=== PATIENT | male | born 1990 | race Caucasian/White ===

== ENCOUNTER 2022-03-12 22:06 | Emergency (ER) | payer OTHER, BC ==
[~2022-03-12] VITALS: Ht 188 cm; Wt 155.0 kg
[~2022-03-12 22:06] MED LIST: TYLENOL EXTRA500 MG PO
[2022-03-12] MEDS ORDERED: AMOX TR-K CLV1 EAC1 PO (23:45)
== END 2022-03-13 00:09 | disposition home or self-care (01) ==
LOC: ED 22:06
DX: S61.452A Open bite of left hand, initial encounter (principal); S61.451A Open bite of right hand, initial encounter; W54.0XXA Bitten by dog, initial encounter
CPT/HCPCS: 99283

== ENCOUNTER 2022-10-06 07:34 | Emergency (ER) | payer OTHER, BC ==
[~2022-10-06] VITALS: Ht 188 cm; Wt 154.7 kg
[~2022-10-06 07:34] MED LIST changes: +AMOX TR-K CLV1 EAC1 PO
[2022-10-06] MEDS ORDERED: ALLERGY25 M1 PO (07:52)
[2022-10-06 11:20] VITALS: BP 138/82
== END 2022-10-06 11:20 | disposition home or self-care (01) ==
LOC: ED 07:34
DX: S91.351A Open bite, right foot, initial encounter (principal); F17.200 Nicotine dependence, unspecified, uncomplicated; W54.0XXA Bitten by dog, initial encounter; Z79.899 Other long term (current) drug therapy
CPT/HCPCS: 99283

== ENCOUNTER 2024-09-13 06:36 | Inpatient (IN) | payer BC ==
[~2024-09-13] VITALS: Ht 188 cm; Wt 149.0 kg
[~2024-09-13 06:36] MED LIST changes: +ALLERGY25 M1 PO
[2024-09-13 07:19] LABS: BILIRUBIN, URINE NEGATIVE (negative); BLOOD/HGB, URINE TRACE-I (Negative); KETONE, URINE NEGATIVE (Negative); LEUK ESTERASE, URINE TRACE (negative); NITRITE, URINE NEGATIVE (negative)
[2024-09-13 07:26] LABS: HEMATOCRIT 45.2 % (35.0-50.0); HEMOGLOBIN 15.5 g/dL (12.0-18.0); MCHC 34.3 g/dl (30-36); MCV 90.5 fl (81-99); PLATELET COUNT 288 K/uL (140-440); RBC 4.99 M/ul (4.3-5.7); RDW 13.8 (10.5-15.0)
[2024-09-13] MEDS ORDERED: HYDROmorphone HCL 1 MG/ML SYR IV ONE (07:30)
[2024-09-13] MEDS ORDERED: SODIUM CHLORIDE 0.9% 1,000 ML IV PRN (07:30)
[2024-09-13] MEDS ORDERED: ondansetron HCL 4 MG/2 ML VIAL IV ONE (07:30)
[2024-09-13 07:31] LABS: BACTERIA, URINE NONE SEEN /hpf (negative); CASTS, URINE NONE SEEN \\lpf; COLLECTION TYPE, URINE CLEAN CATCH; CRYSTALS, URINE NONE SEEN (0-1+); EPITHELIAL CELLS, URINE OCCASIONAL /lpf (0-1+); REFLEX CULTURE, URINE No (No)
[2024-09-13 07:44] LABS: ALBUMIN/GLOBULIN RATIO 0.61 (1.1-2.4); ANION GAP 9.7 (7-21); BILIRUBIN, TOTAL 0.5 mg/dL (0.2-1.0); BUN/CREATININE RATIO 8.06 (6.0-28.6); CALCIUM 9.1 mg/dL (8.5-10.1); CREATININE, SERUM 1.24 mg/dL (0.70-1.30); MAGNESIUM 1.7 mg/dL (1.8-2.4); POTASSIUM 3.7 mmol/L (3.5-5.1); PROTEIN, TOTAL 7.9 g/dL (6.4-8.2)
[2024-09-13 07:45] LABS: LYMPHOCYTES, MANUAL DIFF 13; MONOCYTES, MANUAL DIFF 14; NEUTROPHILS, MANUAL DIFF 73
[2024-09-13 07:47] LABS: BASOPHILS, MANUAL DIFF 0; EOSINOPHILS, MANUAL DIFF 0
[2024-09-13] MEDS ORDERED: PIPERACILLIN/TAZOBACTAM 4.5 GM in SODIUM CHLORIDE 0.9% 100 ML IV ONE (09:30)
[2024-09-13] MEDS ORDERED: LACTATED RINGER'S 1,000 ML IV SCH (10:15)
[2024-09-13] MEDS ORDERED: MORPHINE SULFATE 4 MG/ML VIAL IV PRN (10:15)
[2024-09-13] MEDS ORDERED: ondansetron HCL 4 MG/2 ML VIAL IV PRN (10:30)
[2024-09-13] MEDS ORDERED: [UNRECOGNIZED DRUG - OTHER] IV SCH (10:30)
[2024-09-13] MEDS ORDERED: LYTES IV SCH (10:30)
[2024-09-13] MEDS ORDERED: AMINO ACIDS IV SCH (10:30)
[2024-09-13 11:51] VITALS: BP 151/88
--- NOTE | 2024-09-13 12:01 | NUR ---
BROUGHT PT TO FLOOR ON [facility]. PT ABLE TO AMBULATE TO BED ON OWN. BELONGINGS PLACED IN CUPBOARD IN BAG; PT DECLINED TO USE LOCKBOX. IV'S FLUSHED, WNL. INSCTRUCTED CALL LIGHT USE; CALL LIGHT WITHIN REACH, NO FURTHER NEEDS AT THIS TIME.
--- NOTE | 2024-09-13 12:20 | NUR ---
LR @ 125 IS INFUSING TO LEFT A/C. DR. HEARD IN TO SEE PATIENT. PHARMACY IS LOOKING INTO PPN THAT ORDERED. PATIENT IS CURRENTLY NPR.
[2024-09-13] MEDS ORDERED: LEVOFLOXACIN750 MG PO (13:11)
--- NOTE | 2024-09-13 13:23 | NUR ---
ALERT AND ORIENTED IN BED. DEMOGRAPHICS VERIFIED. LIVES IN SINGLE LEVEL HOME. HAS NO DME. DRIVES AT BASELINE. STATES HE HAS NO FINANCIAL CONCERNS TO PAY UTILITIES OR PAY FOR FOOD OR MEDICATIONS. DENIES ANY CM NEEDS AT THIS TIME.
[2024-09-13 13:28] VITALS: BP 144/85
[2024-09-13 13:35] VITALS: BP 144/85
--- NOTE | 2024-09-13 13:40 | NUR ---
UR CLINICAL REVIEW: [facility] [place]PATIENT FOR DIVERTICULITIS W/PERF [facility] FEDERAL PPO INPT 09/13/24 @ 1107 ORDER MATCHES REG MEGAN BRUNOVD FROM [facility]. REF#[id number]. CLINICALS FAXED FOR FURTHER REVIEW DISCHARGE TO HOME WHEN STABLE 09/16/24
--- NOTE | 2024-09-13 13:53 | NUR ---
PT SITTING IN BED WITH PHONE AND PILLOWS, ZOSYN HUNG AND RUNNING. ASSESSMENT, CARE PLAN, AND MEWS COMPLETED AT THIS TIME. CALL LIGHT WITHIN REACH, PT DENIES ANY FURTHER NEEDS AT THIS TIME.
[2024-09-13] MEDS ORDERED: PIPERACILLIN/TAZOBACTAM 4.5 GM in SODIUM CHLORIDE 0.9% 100 ML IV SCH (14:00)
[2024-09-13] MEDS ORDERED: metroNIDAZOLE/SODIUM CHLORIDE 500 MG/100 ML PIGGYBACK IV SCH (14:00)
--- NOTE | 2024-09-13 14:02 | NUR ---
MED REC COMPLETE
--- NOTE | 2024-09-13 15:32 | NUR ---
PT SITTING IN BED, VISITING WITH FAMILY MEMBER. CALL LIGHT WITHIN REACH, DENIES ANY NEEDS AT THIS TIME.
--- NOTE | 2024-09-13 16:00 | NUR ---
PT UNHOOKED FROM AB FOR SHOWER.
--- NOTE | 2024-09-13 16:19 | NUR ---
PT OUT OF SHOWER AND HOOKED BACK UP TO AB. AND IVF.
--- NOTE | 2024-09-13 17:03 | NUR ---
PT LAYING IN BED, WATCHING TV. IV ZOSYN FINISHED; IV SALINE LOCKED. CALL LIGHT AND PERSONAL BELONGINGS IN REACH, DENIES ANY NEEDS AT TIS TIME.
[2024-09-13 18:31] VITALS: BP 136/79
--- NOTE | 2024-09-13 19:27 | NUR ---
REPORT RECEIVED FROM DAY SHIFT RN. PT LYING IN BED ALERT AND ORIENTED. DENIES NEEDS. WHITE BOARD UPDATED. CALL LIGHT IN REACH.
--- NOTE | 2024-09-13 21:00 | NUR ---
PT REPORTS ABD PAIN "GOING UP" 08/11. PRN FOR PAIN ADMIN PER EMAR. NO FURTHER NEEDS. VISITOR AT BEDSIDE. CALL LIGHT IN REACH.
[2024-09-13 22:00] VITALS: BP 147/77
[2024-09-13 22:02] VITALS: BP 147/77
--- NOTE | 2024-09-13 23:12 | NUR ---
EVENING ASSESSMENT COMPLETE. SCHEDULED MEDS ADMIN PER EMAR. PT REPORTS ABD PAIN TOLERABLE /10. DENIES NAUSEA. ABD SOFT. BOWEL TONES ACTIVE. PT UP TO BR WITH SBA TO VOID. PT AMB MULTIPLE LAPS AROUND NURSING UNIT INDEPENDENTLY. NASREEN WELL. BACK TO BED. PT DENIES QUESTIONS OR CONCERNS. CALL LIGHT IN REACH.
[2024-09-14] VITALS (8 sets, daily range): BP systolic 130–159; BP diastolic 76–93
--- NOTE | 2024-09-14 02:48 | NUR ---
PT RESTING IN BED WITH EYES CLOSED SNORING SOFT. AWAKENS EASILY. VS AND I&O OBTAINED. NO C/O ABD PAIN OR NAUSEA. PT REMAINS NPO. PPN INFUSING PER ORDER. IV FLUSHED WITH 10 ML NS. IV SITE WNL. NO NEEDS AT THIS TIME. CALL LIGHT IN REACH.
--- NOTE | 2024-09-14 06:21 | NUR ---
PT UP TO BR WITH MINIMAL SBA TO VOID AND HAVE MEDIUM SOFT FORMED BM. BACK TO BED, NASREEN WELL. NO C/O PAIN OR NAUSEA. IV ABX INFUSING PER ORDER. NO FURTHER NEEDS.
--- NOTE | 2024-09-14 07:43 | NUR ---
PT AWAKE, ON ROOM AIR, LUNGS WITH FAINT WHEEZING R LOWER BASE, DENIES SOB WITH EXERTION. DRY COUGH PRESENT.NO C/O PAIN OR SOB. ABD LARGE SOFT, DENIES ABD PAIN AT THIS TIME. AMINOACIDS AND ABX INFUSING, 2 IV SITES RAC AND LAC PATENT. L ANKLE TRACE EDEMA. ALERT AND ORIENTED, WATCHING TV
--- NOTE | 2024-09-14 07:45 | NUR ---
HOURLY ROUNDING. NURSE WAS IN THE ROOM WHEN I WAS UPDATING THE BOARD. NO REQUEST ON PATIENT AT THIS TIME.
[2024-09-14 08:06] LABS: BASOPHILS 0.5 % (0-2); HEMATOCRIT 43.8 % (35.0-50.0); LYMPHOCYTES 16.4 % (24-44); MCH 31.2 (27-36); MCHC 34.2 g/dl (30-36); MCV 91.1 fl (81-99); MONOCYTES 10.2 % (0-12); NEUTROPHILS 70.9 % (39-80); PLATELET COUNT 282 K/uL (140-440); RBC 4.81 M/ul (4.3-5.7); RDW 13.6 (10.5-15.0)
[2024-09-14 08:22] LABS: ALBUMIN 2.9 g/dL (3.4-5.0); ALBUMIN/GLOBULIN RATIO 0.62 (1.1-2.4); ANION GAP 11.2 (7-21); BILIRUBIN, TOTAL 0.5 mg/dL (0.2-1.0); BUN/CREATININE RATIO 13.48 (6.0-28.6); CALCIUM 9.3 mg/dL (8.5-10.1); CREATININE, SERUM 0.89 mg/dL (0.70-1.30); POTASSIUM 4.2 mmol/L (3.5-5.1); PROTEIN, TOTAL 7.6 g/dL (6.4-8.2)
--- NOTE | 2024-09-14 08:27 | NUR ---
Walking hallwayse up and down several times, tolerated well
--- NOTE | 2024-09-14 10:00 | NUR ---
Spoke with Arturo. He denies any needs. He does need a pcp and family use [facility] in [place]. I will call Tiffanie to assist pt with a pcp.
--- NOTE | 2024-09-14 10:09 | NUR ---
PATIENT IS UP AMBULATING IN HALLWAY.
--- NOTE | 2024-09-14 10:45 | NUR ---
Pt has walked hallways up and down multiple times since this am. back to room, visiting with family. Pt denies c/o abd pain or n/v. On room air. IVF infusng w/o problems. Was seen by surgeon early this AM
--- NOTE | 2024-09-14 11:01 | NUR ---
VISITED DURING SPIRITUAL CARE ROUNDS. PT IN OVERALL GOOD SPIRITS, NO IMMEDIATE NEEDS. ETL DATA ARCHITECT PROVIDED SUPPORTIVE PRESENCE, HOSPITALITY, PRAYER, FACILITATED INTERACTION WITH THERAPY ANIMAL.
--- NOTE | 2024-09-14 11:38 | NUR ---
Called Tiffanie for fu appt from the hospital and to establish care. Pt scheduled with Tomas LOUISE for September 27 at 10:15.
--- NOTE | 2024-09-14 12:37 | NUR ---
Ambulating hallways, no c/o abd pain. IVF infusing w/o problems.
--- NOTE | 2024-09-14 14:24 | NUR ---
Awake, on room air, watching tv. PPN and IV abx infusing w/o problems. no c/o abd pain
--- NOTE | 2024-09-14 16:03 | NUR ---
PATIENT IN BED AT THIS TIME. BUTTERMAKER HELPER CHARTED HOURLY ROUNDS. CALL LIGHT WITHIN REACH, NO FURTHER NEEDS AT THIS TIME.
--- NOTE | 2024-09-14 16:06 | NUR ---
RESTING, EYES CLOSED, ON ROOM AIR, NO S/SX DISTRESS, REPOSITIONS SELF IN BED, IVF/ABX INFUSING W/O PROBLEMS, NO S/SX OR C/O N/V OR ABD PAIN
--- NOTE | 2024-09-14 17:05 | NUR ---
PATIENT STANDING IN ROOM AT THIS TIME. SQUEEGEE OPERATOR CHARTED VITALS AND I&O'S. CALL LIGHT WITHIN REACH, NO FURTHER NEEDS.
--- NOTE | 2024-09-14 17:22 | NUR ---
Walking hallways up and down multiple times again . tolerating well. no c/o abd pain. IVF infusing w/o problems
--- NOTE | 2024-09-14 18:16 | NUR ---
In bed, Room air, has had 2 bm's this shift, voiding QS, no c/o abd pain or n/v. continues to be NPO. on PPN and IV abx. tolerating well. Has walkem multiple times every hour, toleratiang well. Pleasant and cooperative, toleraing NPO status, does own oral care.
--- NOTE | 2024-09-14 19:14 | NUR ---
REPORT RECEIVED FROM DAYSUTFT RN. PATIENT AMBULATING AROUND HALLWAY WITH EVEN GAIT, IV INFUSIONS CONTINUING TO INFUSE. NO NEEDS IDENTIFIED.
--- NOTE | 2024-09-14 19:46 | NUR ---
PATIENT SITTING UPRIGHT IN BED, WATCHING TV. VS OBTAINED AND RECORDED, ASSESSMENT COMPLETE. INTAKE AND OUTPUT DOCUMENTED. PATIENT DENIES ANY NEEDS AT THIS TIME, REPORTS THAT PAIN IS A 2/10 AND TOLERABLE, DENIES PAIN WITH ABD PALPATION. CALL LIGHT IN REACH
--- NOTE | 2024-09-14 22:48 | NUR ---
SCHEDULED MED STARTED PER ORDER. PATIENT WATCHING TV IN BED, DENIES ANY OTHER NEEDS AT THIS TIME. CALL LIGHT IN REACH.
[2024-09-15] VITALS (10 sets, daily range): BP systolic 146–155; BP diastolic 73–99
--- NOTE | 2024-09-15 00:12 | NUR ---
PATIENT RESTING WITH EYES CLOSED, RESPIRATIONS EVEN AND UNLABORED. IV CONTINUING TO INFUSE PER ORDER. CALL LIGHT IN REACH.
--- NOTE | 2024-09-15 02:06 | NUR ---
ROUNDED ON PATIENT, PATIENT STANDING AND WALKING AROUND ROOM WITH IV POLE. STATES HE IS JUST STRETCHING HIS LEGS. PATIENT HAS EVEN AND STEADY GAIT. HE DENIES ANY NEEDS, CALL LIGHT IN REACH.
--- NOTE | 2024-09-15 02:58 | NUR ---
RN CALLED TO ROOM REGARDING PATIENT IV LEAKING. IV REDRESSED, FLUSHING AND INFUSING WELL AT THIS TIME. NO FURTHER LEAKING NOTED FOR THE IV IN THE RAC. IV IN THE LEFT AC NOTED TO HAVE SOME REDNESS FROM ADHESIVE IRRITATION. IV FLUSHES WELL WITHOUT DIFFICULTY. IV SITE REDRESSED WITHOUT DIFFICULTY. IV INFUSION CONTINUING TO INFUSE PER ORDER. NO FURTHER NEEDS AT THIS TIME. CALL LIGHT IN REACH.
--- NOTE | 2024-09-15 04:32 | NUR ---
ROUNDED ON PATIENT, PATIENT RESTING WITH EYES CLOSED. RESPIRATIONS EVEN AND UNLABORED. IV INFUSION CONTINUING TO INFUSE WITHOUT DIFFICULTY. NO NEEDS IDENTIFIED, CALL LIGHT IN REACH
--- NOTE | 2024-09-15 05:35 | NUR ---
VS OBTAINED AND RECORDED. INTAKE AND OUTPUT DOCUMENTED. BOWEL SOUNDS AUSCULTATED, ABD ASSESSMENT IS UNCHANGED. MINIMAL TENDERNESS, SOFT. PATIENT DECLINES ANY NEEDS, DECLINES PAIN. BOWEL SOUNDS ARE ACTIVE. CALL LIGHT IN REACH. IV INFUSION CONTINUING PER ORDER WITHOUT DIFFICULTY. NO NEEDS.
--- NOTE | 2024-09-15 06:12 | NUR ---
SCHEDULED MED PROVIDED TO PATIENT, INFUSING IN THE LAC. AMINO ACIDS INFUSING IN THE RIGHT AC. BOTH IV SITES INFUSING WITHOUT DIFFICULTY. PATIENT SITTING UPRIGHT IN BED, RESPIRATIONS EVEN AND UNLABORED. PATIENT DECLINES ANY NEEDS AT THIS TIME. CALL LIGHT IN REACH.
--- NOTE | 2024-09-15 07:06 | NUR ---
REPORT RECEIVED FROM SOLAR SALES REPRESENTATIVE AND ASSESSOR YULY CHRISTIAN. PATIENT IS LYING IN BED WITH HOB ELEVATED. PATIENT WITH EYES OPEN AND RESPIRATIONS ARE EVEN AND UNLABORED. PATIENT STATED NO NEEDS AT THIS TIME. CALL LIGHT AND PERSONAL BELONGINGS ARE WITHIN REACH.
--- NOTE | 2024-09-15 08:00 | NUR ---
INTO SEE PATIENT. PATIENT UP IN BED WATCHING TV. STATES HE HAS NO CM NEEDS. HAS A RIDE WHEN MEDICALLY CLEARED. NO QUESTIONS.
--- NOTE | 2024-09-15 08:04 | NUR ---
PATIENT IS LYING IN BED WITH HOB ELEVATED. PATIENT WITH EYES OPEN AND WATCHING TV. RESPIRATIONS ARE EVEN AND UNLABORED. ZOSYN RESTARTED AFTER LAB FINISHED. PATIENT STATED NO FURTHER NEEDS AT THIS TIME. CALL LIGHT AND PERSONAL BELONGINGS ARE WITHIN REACH.
[2024-09-15 08:07] LABS: BASOPHILS 0.5 % (0-2); EOSINOPHILS 2.4 % (0-6); HEMATOCRIT 44.7 % (35.0-50.0); HEMOGLOBIN 15.6 g/dL (12.0-18.0); LYMPHOCYTES 21.2 % (24-44); MCH 31.7 (27-36); MCHC 34.9 g/dl (30-36); MCV 90.8 fl (81-99); NEUTROPHILS 64.9 % (39-80); PLATELET COUNT 308 K/uL (140-440); RBC 4.93 M/ul (4.3-5.7); RDW 13.7 (10.5-15.0)
[2024-09-15 08:22] LABS: ALBUMIN 3.1 g/dL (3.4-5.0); ALBUMIN/GLOBULIN RATIO 0.61 (1.1-2.4); BILIRUBIN, TOTAL 0.6 mg/dL (0.2-1.0); BUN/CREATININE RATIO 12.84 (6.0-28.6); CALCIUM 9.5 mg/dL (8.5-10.1); CREATININE, SERUM 1.09 mg/dL (0.70-1.30); PROTEIN, TOTAL 8.2 g/dL (6.4-8.2)
--- NOTE | 2024-09-15 09:30 | NUR ---
PATIENT IS LYING IN BED WITH HOB ELEVATED. TV IS ON. FULL ASSESSMENT COMPLETE AND DOCUMENTED IN THE CHART. PATIENT IS INDEPENDENT IN THE ROOM. IV SITES BOTH FLUSHED WITH 10 ML NORMAL SALINE. IV DRESSINGS ARE CLEAN, DRY, AND INTACT. AMINO ACIDS ARE INFUSING IN THE RAC AND THE ZOSYN INFUSION IS INFUSING IN THE LAC. PATIENT WITH NO COMPLAINTS OF PAIN. SKIN INTACT. PATIENT IS NPO AT THIS TIME. BOWEL TONES ARE ACTIVE IN ALL FOUR QUADRANTS. PATIENT WITH NO COMPLAINTS OF NAUSEA OR VOMITING. LAST BM WAS 09/14/24. PATIENT IS ON ROOM AIR. LUNG SOUNDS ARE CLEAR IN THE UPPER LOBES AND DIMINISHED IN THE BASES BILATERALLY. CARDIAC WITH NORMAL S1 AND S2 ON AUSCULTATION. RADIAL AND PEDAL PULSES ARE STRONG BILATERALLY. CAPILLARY REFILL IN THE UPPER AND LOWER EXTREMITIES IS LESS THAN 3 SECONDS. SENSATION INTACT WITH NO COMPLAINTS OF NUMBNESS OR TINGLING. NO EDEMA NOTED. PATIENT IS ALERT AND ORIENTED. PATIENT STATED NO FURTHER NEEDS AT THIS TIME. CALL LIGHT AND PERSONAL BELONGINGS ARE WITHIN REACH.
--- NOTE | 2024-09-15 10:20 | NUR ---
In with pt in response to IV Pump alarming occlusion on patient side. IV in pt LAC is patent, however, it doesn't take much bend in his elbow to cause the pump to alarm. Secured the elbow in a hyperextended position using a wash cloth and coban, then used a piece of tape to apply pressure and traction to the hub of the catheter as this seemed to help when I held it in that position using my finger. The zosyn has approximately one hour left to infuse. Heat packs applied to both arms (wash cloth placed between skin and heat pack) to warm them up in the event a new IV site needs to be obtained. Call light in reach. Side rails up x4. Pt denies further needs at this time.
--- NOTE | 2024-09-15 10:37 | NUR ---
ZOSYN INFUSION RESTARTED. PATIENT IS LYING IN BED WITH HOB ELEVATED. PATIENT WITH EYES OPEN AND RESPIRATIONS ARE EVEN AND UNLABORED. PATIENT IS WATCHING TV. PATIENT STATED NO FURTHER NEEDS AT THIS TIME. CALL LIGHT AND PERSONAL BELONGINGS ARE WITHIN REACH.
--- NOTE | 2024-09-15 10:59 | NUR ---
PATIENT IS AMBULATING INDEPENDENTLY IN THE HALLWAY AT THIS TIME.
--- NOTE | 2024-09-15 11:11 | NUR ---
PATIENT IS AMBULATING INDEPENDENTLY IN THE HALLWAY AT THIS TIME.
--- NOTE | 2024-09-15 12:25 | NUR ---
PATIENT AMBULATING THE HALLWAYS INDENPENDENTLY WITH IV INFUSION INFUSING. PRIMARY NURSE, BRIGIDO, NOTIFIED PATIENT OF UPGRADE TO CLEAR LIQUIDS. PATIENT REQUESTED BROTH AND JUICE. NO SIGNS OF SOB OR DIZZINESS NOTED. CHEPE ACOSTA, BROUGHT IN CLEAR LIQUIDS TO THE PATIENT'S ROOM.
--- NOTE | 2024-09-15 12:25 | NUR ---
PATIENT IS AMBULATING THE HALLWAYS INDEPENDENTLY WITH IV FLUIDS INFUSING. PRIMARY NURSE, BRIGIDO, NOTIFIED PATIENT OF DIET CHANGE TO CLEAR LIQUIDS. PATIENT ORDERED FOOD AND DAVE BROUGHT REQUESTED FOODS TO PATIENTS ROOM.
--- NOTE | 2024-09-15 13:55 | NUR ---
PATIENT IS SITTING IN CHAIR WITH VISITOR ON THE COUCH. PATIENT DENIES FURTHER NEEDS AT THIS TIME. CALL LIGHT AND PERSONAL BELONGINGS ARE WITHIN REACH.
--- NOTE | 2024-09-15 14:38 | NUR ---
PATIENT IS AMBULATING IN THE HALLWAY INDEPENDENTLY AT THIS TIME. PATIENT IS TOLERATING WELL.
--- NOTE | 2024-09-15 15:33 | NUR ---
PATIENT IS SITTING IN CHAIR WITH IV FLUID AND MEDICATION INFUSING. PATIENT REPORTS SOME SORENESS IN HIS RIGHT ARM WITH THAT IV SITE. BOTH IVS ARE INFUSING WITH NO REPORTED PAIN OR BURNING. PATIENT REPORTS NO PAIN. PATIENT HAS ACTVE BOWEL TONES IN ALL FOUR QUADRANTS. PATIENT REPORTS NO NAUSEA AT THIS TIME. PATIENT IS TOLERATING ADVANCE TO CLEAR LIQUIDS WELL. PATIENT HAD A BOWEL MOVEMENT TODAY.
--- NOTE | 2024-09-15 16:00 | NUR ---
PATIENT IS SITTING UPRIGHT IN THE CHAIR AT THIS TIME. PATIENT IS ON THEIR PHONE WITH THE TV ON. PATIENT REPORTS NO NEEDS AT THIS TIME. AMINO ACIDS AND ZOSYN ARE INFUSING AT THIS TIME. CALL LIGHT AND PERSONAL BELONGINGS ARE WITHIN REACH.
--- NOTE | 2024-09-15 17:05 | NUR ---
PATIENT IS AMBULATING IN THE HALLWAYS INDEPENDENTLY AT THIS TIME. PATIENT IS TOLERATING WELL.
--- NOTE | 2024-09-15 18:04 | NUR ---
VITAL SIGNS AND INTAKE AND OUTPUT VALUES TAKEN AND DOCUMENTED IN THE CHART. FRESH CUP OF ICE WATER PROVIDED. ZOSYN INFUSION COMPLETE. IV SITE FLUSHED WITH 10 ML NORMAL SALINE AND IS SALINE LOCKED. IV DRESSING IS CLEAN, DRY, AND INTACT. PATIENT STATED NO FURTHER NEEDS AT THIS TIME. CALL LIGHT AND PERSONAL BELONGINGS ARE WITHIN REACH. TV IS ON.
--- NOTE | 2024-09-15 19:14 | NUR ---
REPORT RECEIVED FROM YULY FOFANA. PATIENT SITTING UPRIGHT IN CHAIR WITHOUT DIFFICULTY, IV INFUSION CONTINUING TO INFUSE WITHOUT DIFFICULTY. PATIENT DENIES ANY NEEDS AT THIS TIME, REPORTS NO PAIN. CALL LIGHT IN REACH.
--- NOTE | 2024-09-15 19:28 | NUR ---
PATIENT WALKED AROUND MED SURG. DID 80 LAPS SO FAR TODAY.
--- NOTE | 2024-09-15 20:44 | NUR ---
VS OBTAINED AND RECORDED. ASSESSMENT COMPLETED. IV INFUSION CONTINUING WITHOUT ISSUE. PATIENT DENIES ANY PAIN OR ANY NEEDS AT THIS TIME. ACTIVE BOWEL TONES AND WITHOUT TENDERNESS. PATIENT DENIES ANY NEEDS, CALL LIGHT IN REACH
--- NOTE | 2024-09-15 23:38 | NUR ---
ROUNDED ON PATIENT. IV SITE IN RAC RED, WARM AND HARD ABOVE IV SITE WHERE PPN WAS INFUSING. TELEPHARMACY CALLED FOR INSTRUCTIONS REGARDING INFILTRATION. THEY ADVISED DC IV SITE AND WARM COMPRESS OVER. THIS WAS COMPLETED, IV CATHETER DISCONTINUED, INTACT. STALIN RN ATTEMPTED IV INSERTION, UNSUCCESSFUL. THIS RN ATTEMPTED NEW IV INSERTION, UNSUCCESSFUL. SLURRY CONTROL OPERATOR HELPER CONTACTED FOR ULTRASOUND IV GUIDED START. REDNESS AT SITE OUTLINED WITH MARKER. NO FURTHER NEEDS, CALL LIGHT IN REACH.
--- NOTE | 2024-09-16 00:37 | NUR ---
AMINO ACID INFUSION RESTARTED ON NEW RFA IV WHICH WAS STARTED BY GERMAN Camacho RN. PATIENT DENIES ANY NEEDS AT THIS TIME, CALL LIGHT IN REACH
--- NOTE | 2024-09-16 01:50 | NUR ---
call light answered, pt assisted with tube management when oob. unmeasured void noted, fresh urinal provided and room tidied and board updated. brisk blood return noted to recently new iv site-placed via us from wilfred cedillo (ppn infusing). primary rn updated and aware. pt denies additional needs or concerns. call light in reach.
--- NOTE | 2024-09-16 02:04 | NUR ---
ROUNDED ON PATIENT, PATIENT RESTING WITH EYES CLOSED, RESPIRATIONS EVEN AND UNLABORED. IV MEDICATION AND IV INFUSIONS ARE INFUSING WITHOUT DIFFICULTY. NO NEEDS IDENTIFIED, CALL LIGHT IN REACH
--- NOTE | 2024-09-16 02:13 | NUR ---
IV MEDICATION COMPLETE. IV SALINE LOCKED. WARM COMPRESS OVER SITE OF INFILTRATION. NO FURTHER NEEDS, CALL LIGHT IN REACH.
--- NOTE | 2024-09-16 03:36 | NUR ---
PATIENT RESTING WITH EYES CLOSED, RESPIRATIONS ARE EVEN AND UNLABORED. IV INFUSION CONTINUING IN THE LFA. CALL LIGHT IN REACH, NO NEEDS INDENTIFIED.
[2024-09-16 05:52] VITALS: BP 150/98
[2024-09-16 06:07] VITALS: BP 150/98
--- NOTE | 2024-09-16 06:11 | NUR ---
SCHEDULED MEDICATION ADMINISTERED PER ORDER. ABD EXAM COMPLETED, BOWEL TONES ACTIVE. PATIENT DENIES TENDERNESS, ABD IS SOFT ON PALPATION. PATIENT DENIES NEEDS. RIGHT ARM REMAINS RED FROM INFILTRATION, PATIENT REPORTS SORENESS, WARM COMPRESS PLACED OVER ARM. REDNESS LOOKS TO HAVE SLIGHTLY RECEDED FROM THE ORIGINAL OUTLINE. PATIENT DENIES ANY NEEDS, CALL LIGHT IN REACH
--- NOTE | 2024-09-16 07:10 | NUR ---
REPORT RECEIVED FROM DRAMATIC READER RN GINO. PATIENT IS IN THE BATHROOM AT THIS TIME. CHEPE SCOTT IS IN THE ROOM AND CHANGING THE BED LINENS.
--- NOTE | 2024-09-16 07:45 | NUR ---
PATIENT IS SITTING IN CHAIR WITH BLE ON THE FLOOR. PATIENT HAS IV ANTIBIOTICS AND AMINO ACIDS INFUSING WITH NO SIGNS OF INFILTRATION ON LEAKING. IV SITES WERE FLUSHED WITH 10 MLS NS EACH. PATIENT IS ALERT AND ORIENTED TIMES FOUR. PATIENT HAS CLEAR LUNG SOUNDS IN THE UPPER LOBES AND IS DIMINISHED BILATERALLY IN THE BASES. PATIENT REPORTS NO SOB OR N/V. PATIENT HAS S1/S2 HEART SOUNDS WITH STRONG RADIAL AND PEDAL PULSES. CAPILLARY REFILL IS LESS THAN 3 SECONDS IN ALL FOUR EXTREMITIES. PATIENT HAS SENSATIONS INTACT AND NO NUMBNESS OR TINGLING. PATIENT HAS NO NOTED EDEMA. PATIENT REPORTS 1/10 PAIN IN RIGHT ARM. THE REDDENED AREA ON HIS ARM IS OUTLINED. PATIENT IS NOT REQUESTING ANYTHING FOR PAIN AT THIS TIME. PATIENT HAS ACTIVE BOWEL TONES THROUGHOUT. LAST BOWEL MOVEMENT WAS 09/15/2024. PATIENT IS ABLE TO AMBULATE INDEPENDENTLY. CALL LIGHT AND PERSONAL BELONGINGS ARE WITHIN REACH. PATIENT DENIES FURTHER NEEDS AT THIS TIME. PATIENT IS ON CLEAR LIQUIDS AND CONTINUES TO TOLERATE WELL.
--- NOTE | 2024-09-16 08:03 | NUR ---
PATIENT IS SITTING IN CHAIR WITH BLE ON THE FLOOR. PATIENT HAS IV ANTIBIOTICS AND AMINO ACIDS INFUSING. PATIENT HAS EVEN AND UNLABORED RESPIRATIONS. CALL LIGHT AND PERSONAL BELONGINGS ARE WITHIN REACH.
[2024-09-16 08:05] LABS: BASOPHILS 0.6 % (0-2); EOSINOPHILS 2.5 % (0-6); HEMATOCRIT 47.6 % (35.0-50.0); HEMOGLOBIN 16.4 g/dL (12.0-18.0); LYMPHOCYTES 20.2 % (24-44); MCH 31.2 (27-36); MCHC 34.4 g/dl (30-36); MCV 90.7 fl (81-99); MONOCYTES 10.1 % (0-12); NEUTROPHILS 66.6 % (39-80); PLATELET COUNT 336 K/uL (140-440); RBC 5.25 M/ul (4.3-5.7); RDW 13.6 (10.5-15.0)
--- NOTE | 2024-09-16 09:00 | NUR ---
INTO SEE PATIENT. PATIENT SITTING IN CHAIR. FAMILY TO PICKUP AT TIME OF DISCHARGE NO FUTHER CM NEEDS.
[2024-09-16 09:07] VITALS: BP 151/96
--- NOTE | 2024-09-16 09:10 | NUR ---
PT SITTING IN CHAIR. PT HAS NO NEEDS AT THIS TIME. CALL LIGHT WITHIN REACH.
--- NOTE | 2024-09-16 09:20 | NUR ---
PATIENT IS SITTING IN CHAIR WITH BILATERAL FEET ON THE FLOOR. PATIENT HAS IV MEDICATIONS INFUSING. PATIENT DENIES FURTHER NEEDS AT THIS TIME. CALL LIGHT AND PERSONAL BELONINGS ARE WITHIN REACH.
[2024-09-16 09:47] VITALS: BP 151/96
--- NOTE | 2024-09-16 10:25 | NUR ---
PATIENT IS SITTING IN CHAIR WITH BILATERAL FEET ON THE FLOOR. AMINO ACIDS NOW INFUSING THROUGH PATIENT'S LEFT IV PER PATIENT'S REQUEST. PATIENT REPORTED SORENESS IN RIGHT ARM. PATIENT DENIES FURTHER NEEDS AT THIS TIME. BOTH IVS WERE FLUSHED. CALL LIGHT AND PERSONAL BELONGINGS ARE WITHIN REACH.
--- NOTE | 2024-09-16 11:16 | NUR ---
UR CONCURRENT/CLINICAL REVIEW: [facility] [place] FOR DIVERTICULITIS W/PERF VARIANCE FOR GL FOR CONTINUED IV ANTIBIOTICS AND NEED TO ADVANCE DIET [facility] FEDERAL PPO INPT 09/13/24 @ 1107 ORDER MATCHES REG MEGAN BRUNOVD FROM [facility]. REF# [id number]. CLINICALS FAXED FOR FURTHER REVIEW DISCHARGE TO HOME WHEN STABLE, POTENTIAL DC TODAY 09/19/24
--- NOTE | 2024-09-16 11:19 | NUR ---
PATIENT IS SITTING IN CHAIR WITH BILATERAL FEET ON THE FLOOR. IV AMINO ACIDS INFUSING WITH NO SIGNS OF INFILTRATION OR LEAKING AT THIS TIME. PATIENT DENIES BURNING OR SORENESS WITH INFUSION. PATIENT CONTINUES TO REPORT SORENESS IN RIGHT ARM. CALL LIGHT AND PERSONAL BELONGINGS ARE WITHIN REACH. PATIENT DENIES FURTHER NEEDS AT THIS TIME.
[2024-09-16] MEDS ORDERED: LEVOFLOXACIN750 MG PO (11:56)
[2024-09-16] MEDS ORDERED: HYDROCODON-ACE1 EA11 PO (11:56)
--- NOTE | 2024-09-16 12:39 | NUR ---
THIS RN CALLED PHARMACY TO VERIFY INFILTRATION WITH AMINO ACIDS. SAHIL, PHARMACIST STATED TO TELL PATIENT TO JUST USE WARM COMPRESS. THIS RN EDUCATED PATIENT AT THIS TIME. BETO, STUDENT NURSE TRACED THE REDNESS ON THE PATIENT RIGHT ARM. PATIENT STATED NO FURTHER NEEDS AT THIS TIME. CALL LIGHT AND PERSONAL BELONGINGS ARE WITHIN REACH.
== END 2024-09-16 12:50 | disposition home or self-care (01) | DRG 392 ==
LOC: ED 06:36 → MS 11:22
PROVIDERS: Emergency Medicine; ADMIT Surgery; ATTEND Surgery
DX: K57.20 Diverticulitis of large intestine with perforation and abscess without bleeding (principal); Z68.41 Body mass index [BMI] 40.0-44.9, adult; E66.9 Obesity, unspecified; F17.210 Nicotine dependence, cigarettes, uncomplicated; Z90.49 Acquired absence of other specified parts of digestive tract; Z98.890 Other specified postprocedural states
CPT/HCPCS: 36415; 74177; 80053; 81001; 83605; 83690; 83735; 85025; J1171; J2270; J2405; J2543; J3490; J7030; J7121; Q9967

== ENCOUNTER 2025-02-21 19:48 | Inpatient (IN) | payer BC ==
[~2025-02-21] VITALS: Ht 188 cm; Wt 150.8 kg
[~2025-02-21 19:48] MED LIST changes: +HYDROCODON-ACE1 EA11 PO; +LEVOFLOXACIN750 MG PO
[2025-02-21 20:39] LABS: MCH 29.9 PG (25.7-32.2); MCHC 33.1 g/dL (32.3-36.5); MCV 90.3 fL (79.0-92.2); RBC 5.45 M/uL (4.63-6.08)
[2025-02-21] MEDS ORDERED: PIPERACILLIN/TAZOBACTAM 4.5 GM in SODIUM CHLORIDE 0.9% 100 ML IV ONE (20:45)
[2025-02-21] MEDS ORDERED: SODIUM CHLORIDE 0.9% 1,000 ML IV ONE (20:45)
[2025-02-21] MEDS ORDERED: MORPHINE SULFATE 4 MG/ML VIAL IV ONE (20:45)
[2025-02-21 20:50] LABS: LYMPHOCYTES, MANUAL DIFF 7; MONOCYTES, MANUAL DIFF 5; NEUTROPHILS, MANUAL DIFF 88
[2025-02-21 20:53] LABS: ALT (SGPT) 21.0 U/L (14-59); AST (SGOT) 12.0 U/L (15-37); GLOMERULAR FILTRATION RATE,EST 111.0 mL/min (>60); PROTEIN, TOTAL 8.0 g/dL (6.4-8.2); UREA NITROGEN 11.0 mg/dL (7-18)
[2025-02-21 20:59] LABS: LACTIC ACID, BLOOD 1.1 mmol/L (0.4-2.0)
[2025-02-21] MEDS ORDERED: ACETAMINOPHEN 325 MG TAB PO PRN (23:15)
[2025-02-21] MEDS ORDERED: MORPHINE SULFATE 4 MG/ML VIAL IV PRN (23:15)
[2025-02-21] MEDS ORDERED: MEROPENEM 1,000 MG in SODIUM CHLORIDE 0.9% 100 ML IV ONE (23:15)
[2025-02-21] MEDS ORDERED: FAMOTIDINE 20 MG/ 2 ML VIAL IV SCH (23:15)
[2025-02-21] MEDS ORDERED: DEXTROSE 5% - LACTATED RINGERS 1,000 ML IV SCH (23:15)
[2025-02-21] MEDS ORDERED: HYDROmorphone HCL 1 MG/ML SYR IV PRN (23:15)
[2025-02-22] VITALS (11 sets, daily range): BP systolic 131–152; BP diastolic 74–86
[2025-02-22 01:09] LABS: BLOOD/HGB, URINE SMALL (Negative); KETONE, URINE TRACE (Negative); LEUK ESTERASE, URINE NEGATIVE (negative); NITRITE, URINE NEGATIVE (negative)
[2025-02-22 01:15] LABS: BACTERIA, URINE RARE /hpf (negative); CASTS, URINE NONE SEEN \\lpf; CRYSTALS, URINE NONE SEEN (0-1+); EPITHELIAL CELLS, URINE SQUAMOUS 1+ /lpf (0-1+); REFLEX CULTURE, URINE No (No)
[2025-02-22 05:35] LABS: BASOPHILS 0.3 % (0.2-1.2); EOSINOPHILS 0.4 % (0.8-7.0); LYMPHOCYTES 8.2 % (21.8-53.1); MCH 30.2 PG (25.7-32.2); MCHC 33.0 g/dL (32.3-36.5); MCV 91.4 fL (79.0-92.2); MONOCYTES 7.4 % (5.3-12.2); NEUTROPHILS 83.1 % (34.0-67.9); RBC 4.74 M/uL (4.63-6.08)
[2025-02-22 05:45] LABS: SMEAR REVIEW BLOOD SEE COMMENTS
[2025-02-22 05:54] LABS: ALT (SGPT) 20.0 U/L (14-59); AST (SGOT) 11.0 U/L (15-37); GLOMERULAR FILTRATION RATE,EST 120.0 mL/min (>60); PROTEIN, TOTAL 6.7 g/dL (6.4-8.2); UREA NITROGEN 9.0 mg/dL (7-18)
[2025-02-22] MEDS ORDERED: MEROPENEM 1,000 MG in DEXTROSE 5% 100 ML IV SCH ×2 (06:00→14:00)
[2025-02-22] MEDS ORDERED: FAMOTIDINE 20 MG/ 2 ML VIAL IV SCH (09:55)
[2025-02-22] MEDS ORDERED: LACTATED RINGER'S 1,000 ML IV ONE ×2 (10:00→15:15)
[2025-02-22] MEDS ORDERED: HYDROmorphone HCL 1 MG/ML SYR IV PRN (10:00)
[2025-02-22] MEDS ORDERED: KETOROLAC TROMETHAMINE 30 MG/ML VIAL IV PRN (10:00)
[2025-02-22] MEDS ORDERED: LACTATED RINGER'S 1,000 ML IV SCH (10:00)
[2025-02-23] VITALS (11 sets, daily range): BP systolic 141–170; BP diastolic 72–93
[2025-02-23 05:44] LABS: BASOPHILS 0.2 % (0.2-1.2); EOSINOPHILS 1.4 % (0.8-7.0); LYMPHOCYTES 9.7 % (21.8-53.1); MCH 30.4 PG (25.7-32.2); MCHC 32.9 g/dL (32.3-36.5); MCV 92.5 fL (79.0-92.2); MONOCYTES 11.1 % (5.3-12.2); NEUTROPHILS 77.1 % (34.0-67.9); RBC 4.51 M/uL (4.63-6.08)
[2025-02-23 06:01] LABS: ALT (SGPT) 20.0 U/L (14-59); AST (SGOT) 12.0 U/L (15-37); GLOMERULAR FILTRATION RATE,EST 122.0 mL/min (>60); PROTEIN, TOTAL 6.5 g/dL (6.4-8.2); UREA NITROGEN 9.0 mg/dL (7-18)
[2025-02-23] MEDS ORDERED: SEVOFLURANE 250 ML BTL INH ONE (13:02)
[2025-02-23] MEDS ORDERED: SUCCINYLCHOLINE IN 0.9% NACL 200 MG/10 ML SYRINGE ONE (14:16)
[2025-02-23] MEDS ORDERED: LIDOCAINE HCL 2% 5 ML SDV ONE (14:16)
[2025-02-23] MEDS ORDERED: ROCURONIUM BROMIDE 50 MG/5 ML SYR ONE ×3 (14:16→18:28)
[2025-02-23] MEDS ORDERED: DEXAMETHASONE SOD PHOS 4 MG/ML VIAL ONE ×2 (14:16→16:38)
[2025-02-23] MEDS ORDERED: fentaNYL citrate 100 MCG/2 ML VIAL ONE (14:16)
[2025-02-23] MEDS ORDERED: ACETAMINOPHEN 1,000 MG/100 ML VIAL ONE (14:17)
[2025-02-23] MEDS ORDERED: SUGAMMADEX SODIUM 200 MG/2 ML ML ONE ×2 (14:59→18:48)
[2025-02-23] MEDS ORDERED: MAGNESIUM SULFATE 1 GM/2 ML VIAL ONE (14:59)
[2025-02-23] MEDS ORDERED: KETAMINE in NS 50 MG/5 ML SYR ONE (15:27)
[2025-02-23] MEDS ORDERED: Ropivacaine HCl 0.5% 30 ML VIAL ONE (16:38)
[2025-02-23] MEDS ORDERED: SODIUM CHLORIDE 0.9% 40 ML IV ONE (16:38)
[2025-02-23] MEDS ORDERED: fentaNYL citrate 50 MCG/ML SDV IV PRN (18:45)
[2025-02-23] MEDS ORDERED: IBLOOD GLUCOSE TEST STRIP 1 EA TEST VI PRN (18:45)
[2025-02-23] MEDS ORDERED: NALOXONE HCL 0.4 MG SYR IV PRN (18:45)
[2025-02-23] MEDS ORDERED: KETOROLAC TROMETHAMINE 30 MG/ML VIAL ONE (18:46)
[2025-02-23] MEDS ORDERED: ACETAMINOPHEN 500 MG TAB PO SCH (19:45)
[2025-02-23] MEDS ORDERED: IBUPROFEN 600 MG TAB PO PRN (20:45)
[2025-02-24] VITALS (10 sets, daily range): BP systolic 139–165; BP diastolic 72–92
[2025-02-24 05:29] LABS: BASOPHILS 0.2 % (0.2-1.2); EOSINOPHILS 0 % (0.8-7.0); LYMPHOCYTES 6.2 % (21.8-53.1); MCH 30.2 PG (25.7-32.2); MCHC 33.0 g/dL (32.3-36.5); MCV 91.4 fL (79.0-92.2); MONOCYTES 8.8 % (5.3-12.2); NEUTROPHILS 84.0 % (34.0-67.9); RBC 4.44 M/uL (4.63-6.08)
[2025-02-24 05:45] LABS: GLOMERULAR FILTRATION RATE,EST 121.0 mL/min (>60); UREA NITROGEN 10.0 mg/dL (7-18)
--- NOTE | 2025-02-24 18:26 | HP ---
[facility] [address], [place] [address] Signed ADMISSION DATE: 02/21/2025 REASON FOR ADMISSION: Acute diverticulitis with peridiverticular fluid collection (recurrent). HISTORY OF PRESENT ILLNESS: This 35-year-old large white man works at the [employer] and lives outside of [place] and presents to the emergency room with generalized abdominal pain. He had perforated diverticulitis with peridiverticular fluid collection previously under the care of Dr. Palumbo in September of 2024. Review of that record confirms he had a micro perforation without significant abscess. He did not undergo colonoscopy or anything after that. He did not have a surgical resection. He presented late last night and evaluated by Dr. Chacon with his complaints of lower abdominal pain, which have been going on since Thursday (today is Thursday), worsening over the past few days with minimal nausea, but no emesis. He noted his symptoms were similar to his last episodes in September. Evaluation included a CT scan of the abdomen showing findings consistent with perforated sigmoid diverticulitis with a 7.5 x 5.5 x 2.8 cm extraluminal fluid and gas collection between the small bowel loops in the sigmoid. There were multiple loops of small bowel in the mid and lower abdomen with wall thickening associated inflammation. There was small amount of free fluid in the pelvic gutters. He had an incidental finding of a 1 cm fat containing left adrenal nodule. His white count was quite markedly elevated to 31.01. His white count today with antibiotic therapy was 21.25. His lactic acid level was 1.1 (normal). The patient says since admission late last night, he is feeling much better. He has had no nausea or vomiting. His pain is markedly better as well. PAST MEDICAL HISTORY: Notable for a low midline laparotomy for an appendicitis problem while in his teenage years. He denies other underlying medical problems. MEDICATIONS: At time of admission are none; he had been treated with Levaquin and hydrocodone in September for his perforated diverticulitis under the care of Dr. Palumbo. ALLERGIES: Electronically Signed By: NILAM GUERRERO MD 02/24/25 1826 PATIENT NAME: ALOK GOLDMAN HISTORY AND PHYSICAL DATE OF : [birth year] REPORT #: [id number] PHYSICIAN: NILAM GUERRERO MD PCP: OTHER PCP REPORT IS CONFIDENTIAL AND NOT TO BE RELEASED WITHOUT AUTHORIZATION [address] [address] Signed He has no known drug allergies. SOCIAL HISTORY: He works at the [employer] in the [place].. He is currently but undergoing divorce. He has two children, ages 18 and 19. He lives in [facility]. REVIEW OF SYSTEMS: He denies any shortness of breath or chest pain. He has no dysphagia or dysuria. Denies any hematemesis or blood per rectum. His abdominal pain is much improved today. PHYSICAL EXAMINATION: GENERAL: A very large white man who does not appear to be systemically toxic. VITAL SIGNS: Temperature is 99.8, pulse 119, blood pressure 137/79. HEENT: Trachea is midline. He has a full marx. CHEST: Clear. HEART: Regular without murmur. ABDOMEN: Rather obese with a large hanging pannus. Surprisingly, he does not have much in the way of tenderness at this time. EXTREMITIES: Show no clubbing, cyanosis, or edema. LABORATORY STUDIES: Showed a presentation white count of 31.01, currently of 21.25, hematocrit was 49.2, currently 43.3, platelets now 191,000. Chem profile is essentially normal. Creatinine is 0.73, previously 0.91. Lactic acid was 1.1 at admission, not repeated. Liver enzymes are normal. Lipase is normal at 14. Urinalysis is normal except for 4-6 white cells per high-power field. IMAGING: CT scan was reviewed in detail and report reviewed as well. There is an amorphous inflammatory process in the central to right lower abdomen extensively related to perforated diverticulitis. ASSESSMENT: The patient has recurrent diverticulitis with perforation and air fluid collection of approximately 8 cm in maximum dimension with intervening small bowel loops, helping to wall off the process apparently. He has responded well to fluid resuscitation, IV antibiotics. Consideration will be made for drainage of the fluid collection, though this would not be amenable to a CT scan-guided approach in my opinion given the intervening bowel loops, amorphous nature of the fluid collection. Consideration might be made for a laparoscopic approach to Electronically Signed By: NILAM GUERRERO MD 02/24/25 9196 PATIENT NAME: ALOK GOLDMAN HISTORY AND PHYSICAL DATE OF : [birth year] REPORT #: [id number] PHYSICIAN: NILAM GUERRERO MD PCP: OTHER PCP REPORT IS CONFIDENTIAL AND NOT TO BE RELEASED WITHOUT AUTHORIZATION [address] [address] Signed allow for clearance of the fluid collection, placement of drain, and ultimately sigmoid resection. Alternatively, if this was not possible, particularly given he has had a prior operation through a low midline incision, he may have complicating adhesions and so forth. A standard classic approach of course would be sigmoid resection with end colostomy and later takedown of the colostomy. We talked about this in detail. There are other ways to mitigate that including resection with primary anastomosis and diverting proximal loop ileostomy, but at this point, given his much improved situation, I think there is room for avoidance of resection and colostomy. He is still somewhat tachycardic and may be somewhat relatively dehydrated. We will fluid bolus at this time and continue with medication, which includes meropenem. He will remain n.p.o. as he may still require intervention today. MD FIDEL Mars/AMBER /[id number] cc: Milena Rogers DO Copies: ~ Electronically Signed By: NILAM GUERRERO MD 02/24/25 1826 PATIENT NAME: ALOK GOLDMAN HISTORY AND PHYSICAL DATE OF : [birth year] REPORT #: [id number] PHYSICIAN: NILAM GUERRERO MD PCP: OTHER PCP REPORT IS CONFIDENTIAL AND NOT TO BE RELEASED WITHOUT AUTHORIZATION
[2025-02-25] VITALS (12 sets, daily range): BP systolic 158–175; BP diastolic 87–99
--- NOTE | 2025-02-25 11:43 | OR ---
[facility] [address] [place], [place] [address] Signed DATE OF OPERATION: 02/23/2025 SURGEON: Nilam Guerrero MD PREOPERATIVE DIAGNOSES: 1. Morbid obesity. 2. Distant history of complex appendectomy through a low midline incision. 3. Perforated diverticulitis with complex multiloculated intraabdominal and pelvic abscesses. POSTOPERATIVE DIAGNOSES: 1. Morbid obesity. 2. Distant history of complex appendectomy through a low midline incision. 3. Perforated diverticulitis with complex multiloculated intraabdominal and pelvic abscesses. PROCEDURES: 1. Laparoscopy with lysis of adhesions. 2. Conversion to open laparotomy with drainage of multiloculated interloop mesenteric abscesses and peridiverticular abscess. PROLONGED COMPLICATED AND DIFFICULT 3. Sigmoid colectomy with side-to-end coloproctostomy, prolonged complicated difficult. 4. Peritoneal lavage and placement of pelvic drain. ANESTHESIA: General endotracheal, Hudson Steele, [employer] and postoperative bilateral TAP block. INDICATION: This 35-year-old morbidly obese white man, lives in [place]. In September of this year, he presented to the hospital with perforated diverticulitis and a small peridiverticular abscess. He was managed conservatively by Dr. Palumbo, and did not require operative intervention. He did not have a colonoscopy at that time. He presented once again on February 21, 2025 with severe abdominal pain, having had increasing pain in the lower abdomen dominantly on the right side for the preceding 5 days. His white count was elevated to more than 31,000. Broad-spectrum antibiotic meropenem was administered. IV fluids given and to my surprise, essentially all of his abdominal pain has resolved. Close inspection of the CT scan shows a multiloculated fluid collection, absolutely not amenable to percutaneous drainage. Likely, this process is from perforated diverticulitis as it was before. He has had several days of ongoing problems and is now optimized for at least drainage of the abscess with possible Electronically Signed By: NILAM GUERRERO MD 02/25/25 1143 PATIENT NAME: ALOK GOLDMAN OPERATIVE REPORT DATE OF : [birth year] REPORT #: [id number] PHYSICIAN: NILAM GUERRERO MD PCP: OTHER PCP REPORT IS CONFIDENTIAL AND NOT TO BE RELEASED WITHOUT AUTHORIZATION [facility] [address] [place], [place] [address] Signed elective resection of the colon after bowel prep and other interventions. He is not systemically toxic at this time. He understands the risk of bleeding, infection, need for open procedure, need for bowel resection with end colostomy or perhaps anastomosis of proximal diversion and other indicated procedures. Understanding that, he wished to proceed. FINDINGS: On laparoscopy, he had a dense omental covering of the entire abdominal viscera. There were dense omental adhesions to the prior low midline incision as well. Despite great efforts, this could never be fully mobilized to allow for interrogation of the bowel loops more fully and on that basis, conversion to open laparotomy was undertaken. A previous low midline incision was used with some extension cephalad. He had a very thick abdominal wall pannus approximately 4 inches or so. Found within the lower abdomen was a dense phlegmonous mass extending to the right pelvis more so than the sigmoid proper, but was related in fact to perforated sigmoid diverticulitis. Secondary adhesions of small bowel were noted and interloop abscesses were broken down and suctioned free. A dominant abscess in the low abdomen, which had been seen on preoperative CT scan 7.2 cm in size was identified as well. Gram stain and cultures were obtained. Once the ascending segment of sigmoid was resected including the upper rectum, the remaining rectum and more proximal colon was surprisingly viable, not inflamed and was amenable to primary anastomosis by hand-sewn technique. Though a plan for possible diverting loop ileostomy proximal to the anastomosis was anticipated, it was my judgment that such an intervention would actually be more problematic given his thick abdominal wall pannus and the ileostomy that would have to transgress it. On that basis, no diversion was undertaken proximally, though I am very confident that the proximal and distal segments were quite viable, noninflamed, and had minimal of any stool burden at all. A drain was placed of course. THE OPERATIION WAS PROLONGED COMPLICATED AND DIFFICULT LASTING MORE THAN 4 HOURS IN AGGREGATE. DESCRIPTION OF PROCEDURE: The patient was brought to the operating room, given a general endotracheal anesthetic. Michael catheter was placed. Preoperative antibiotic, meropenem had been given. Sequential compression device stockings were used as well. The abdomen was prepared with chlorhexidine solution and draped sterilely. An Ioban was applied as he had several excoriated lesions in the lower abdomen and pannus. A supraumbilical fascial incision was made and using an open Traci cannula technique, pneumoperitoneum was achieved to a level of 14 mmHg of carbon dioxide gas. Intra-abdominal inspection showed no ascites or carcinomatosis, but omentum had draped over the entire abdominal contents in a very thick uniform pattern. There was Electronically Signed By: NILAM GUERRERO MD 02/25/25 1143 PATIENT NAME: ALOK GOLDMAN OPERATIVE REPORT DATE OF : [birth year] REPORT #: [id number] PHYSICIAN: NILAM GUERRERO MD PCP: OTHER PCP REPORT IS CONFIDENTIAL AND NOT TO BE RELEASED WITHOUT AUTHORIZATION [facility] [address] [place], [place] [address] Signed no purulence and certainly no fecal material apparent. With dissection from the patient's right side, 2 additional 5 mm ports were placed and using 2-hand manipulation, omental adhesions to the low midline incision were dissected free as much as possible. Unfortunately, despite this effort, the inflammatory cocoon overlying the small bowel could not be reasonably interrogated and therefore, conversion to open operation was undertaken. The trocars removed and a midline incision was made using the previous incision, extended somewhat cephalad to it, but not that far. Thick abdominal wall pannus 4 inches deep was noted. The Bookwalter retractor was used to provide better exposure. Intraabdominal palpation allowed for evaluation of the omentum which was densely adherent to the surface of the small bowel. This was bluntly it lower in the abdomen. Multiple thickened loops of small bowel were noted. The adhesions to them were broken down and inflammatory fluid and infected fluid was noted. The dominant abscess was deep in the pelvis and adjacent to the sigmoid mesentery with one wall of small bowel making up the wall of it. This was freed up off fully and Gram stain and cultures were obtained. A deep dense phlegmonous mass of the rectosigmoid extending to the right lower abdomen was noted. Irrigation was undertaken more fully and small bowel loops once freed were isolated cephalad and out of the way. Examination of the left colon showed it to be reasonably free of inflammation at the rectosigmoid and sigmoid densely inflamed, coiled, and in the typical appearance of history of perforation with chronic inflammatory change. The sigmoid colon which extended to the right lower quadrant was freed by dividing omentum to it, ultimately allowing for elevation of the omentum and packing of all small bowel out of the way. Optimal postioning of a Bookwalter retractor took a lot of time but allowed safe and clear exposure of the offending colon. The phlegmonous mass in the right lower quadrant was freed from the surrounding soft tissue, mindful he had prior appendectomy. Subsequent to that, the white line of Toldt was incised with electrocautery and dissection was undertaken to the normal descending colon onto the thickened and inflammatory sigmoid colon ultimately freeing it from the pelvic sidewall. Dense mesenteric thickening was noted with the sigmoid. This area was incised than area more thinned out and less involved with the inflammatory process. Application of tonsil clamps to the vascular pedicles was undertaken and these vascular pedicles were oversewn with interrupted 0 silk sutures dominantly. The distal descending colon was transected with a ALLIE 60 stapling device which allowed better manipulation of the sigmoid phlegmon. Further dissection was taken inferiorly progressively elevating the inflammatory process from the pelvis. Ultimately, the upper and mid rectum were freed and elevated and to my surprise and to my delight, the upper to mid rectum appeared to be free of inflammatory change. A bowel clamp was applied to this area. An additional clamp was applied proximal to this and the upper to mid rectum was transected with prostate scissors. Specimen was passed for pathology. Irrigation was undertaken and inspection of the Electronically Signed By: NILAM GUERRERO MD 02/25/25 1143 PATIENT NAME: ALOK GOLDMAN OPERATIVE REPORT DATE OF : [birth year] REPORT #: [id number] PHYSICIAN: NILAM GUERRERO MD PCP: OTHER PCP REPORT IS CONFIDENTIAL AND NOT TO BE RELEASED WITHOUT AUTHORIZATION [address] [address] Signed remaining rectum and descending colon was undertaken showing the bowel to be completely free of inflammation, pliable and as good as the bowel that had been electively to be resected. There was no bulky stool within the proximal colon or remaining rectum. On that basis, a primary anastomosis was deemed more advisable than an end colostomy. The staple line of the transected distal colon was oversewn with interrupted 3-0 silk sutures. A side-to-end (Silveira) coloproctostomy was then undertaken with a 2-layer technique of interrupted 3-0 silk suture. Upon opening the mucosa of each limb, only a thin gelatinous green mucoid material was noted. Using sponge sticks with Betadine, both proximal and distal segments were gently cleansed after isolation of the operative site with laparotomy packs. At conclusion of the anastomosis, both segments were completely tension free and quite viable. Gloves were changed on all operative members and isolating laparotomy packs removed. Irrigation was undertaken more fully. Through a left-sided stab incision, a 7 mm flat Vick drain was insinuated into the pelvis and nirmal-anastomotic area, but not in direct contact with it. 2 L of sterile saline were irrigated throughout the abdomen for complete clearance of any additional inflammatory fluid. There was no remaining pus. Small bowel loops had been freed up entirely showed no sign of compromised leakage or other problem. Attention was then turned towards closure. The midline fascia was reapproximated with running bidirectional #1 PDS suture, interspersed with interrupted #1 PDS internal retention sutures in a Smead-Hernández configuration. Subcutaneous tissue was copiously irrigated and the skin closed with clips. A drain was applied to bulb suction. The patient then underwent bilateral TAP blocks. He was extubated in the operating room planning transfer to the recovery room in good condition. Consideration had been made for possible proximal enteric diversion following the anastomosis. The anastomosis was not unlike that of an prepped anastomosis and given that welcome finding and mindful of the difficulty of a proximal diverting loop ileostomy through his very thick abdominal wall pannus, I considered it safer to avoid proximal diversion in this particular situation. MD FIDEL Mars/THANHL /[id number] Electronically Signed By: NILAM GUERRERO MD 02/25/25 1143 PATIENT NAME: ALOK GOLDMAN OPERATIVE REPORT DATE OF : [birth year] REPORT #: [id number] PHYSICIAN: NILAM GUERRERO MD PCP: OTHER PCP REPORT IS CONFIDENTIAL AND NOT TO BE RELEASED WITHOUT AUTHORIZATION [facility] [address] [facility] [place], [place] [address] Signed cc: Dr. Chacon [facility] Copies: ~ Electronically Signed By: NILAM GUERRERO MD 02/25/25 1143 PATIENT NAME: ALOK GOLDMANOLAS OPERATIVE REPORT DATE OF : [birth year] REPORT #: [id number] PHYSICIAN: NILAM GUERRERO MD PCP: OTHER PCP REPORT IS CONFIDENTIAL AND NOT TO BE RELEASED WITHOUT AUTHORIZATION
[2025-02-25] MEDS ORDERED: CIPROFLOXACIN 250 MG TAB PO SCH (21:00)
[2025-02-26] VITALS (10 sets, daily range): BP systolic 152–169; BP diastolic 87–101
[2025-02-26 05:37] LABS: BASOPHILS 0.5 % (0.2-1.2); EOSINOPHILS 3.4 % (0.8-7.0); LYMPHOCYTES 26.7 % (21.8-53.1); MCH 30.4 PG (25.7-32.2); MCHC 32.9 g/dL (32.3-36.5); MCV 92.3 fL (79.0-92.2); MONOCYTES 10.9 % (5.3-12.2); NEUTROPHILS 56.4 % (34.0-67.9); RBC 4.31 M/uL (4.63-6.08)
[2025-02-26 05:51] LABS: GLOMERULAR FILTRATION RATE,EST 124.0 mL/min (>60); UREA NITROGEN 9.0 mg/dL (7-18)
[2025-02-26] MEDS ORDERED: FAMOTIDINE 20 MG TAB PO SCH (21:00)
[2025-02-27 06:04] VITALS: BP 153/94
[2025-02-27 06:08] VITALS: BP 153/94
[2025-02-27 09:26] VITALS: BP 153/94
[2025-02-27] MEDS ORDERED: ACETAMINOPHEN500 MG PO (09:37)
[2025-02-27] MEDS ORDERED: CIPROFLOXACIN250 MG PO (09:37)
[2025-02-27] MEDS ORDERED: METRONIDAZOLE250 MG PO (09:37)
[2025-02-27] MEDS ORDERED: IBUPROFEN600 MG PO (09:37)
[2025-02-27 10:35] VITALS: BP 147/98
--- NOTE | 2025-02-28 11:16 | PATH ---
[facility] [address] [place], [place] [address] Signed SPECIMEN(S): A SIGMOID COLON, PORTION OF RECTUM SPECIMEN SOURCE: A. SIGMOID COLON, PORTION OF RECTUM CLINICAL HISTORY: Perforated sigmoid colon with portion of rectum.-Diverticulum, rupture with abscess. FINAL PATHOLOGIC DIAGNOSIS: Sigmoid colon with portion of rectum: - Diverticulitis coli with evidence of perforation and pericolonic abscess. - Acute serositis. - Two pericolonic lymph nodes with reactive histologic features. [facility] MICROSCOPIC EXAMINATION: Histologic sections of all submitted blocks are examined by light microscopy. These findings, together with the gross examination, support the pathologic diagnosis. GROSS DESCRIPTION: The specimen, labeled and designated "James, S, " and designated on the requisition "perforated sigmoid colon with portion of rectum," is received in formalin and consists of one unoriented segment of large bowel that is 15.5 cm in length and has an average internal circumference of 5.0 cm. The specimen is indurated. The serosal surface is red with adherent red membranous tissue and areas of ley-green exudate. Upon opening the mucosal surface is pink and finely granular with the usual folding pattern. Serially sectioning reveals multiple diverticula. One diverticulum communicates with pink granular filled cavity that extends into the serosal surface and measures 2.5 cm in greatest dimension. The bowel wall has an average thickness of 1.5 cm. Two possible lymph nodes are grossly identified. [employer] sections are submitted in six cassettes. Cassette Summary: (A1) resection margins, shave (A2-A3) diverticulum to cavity within mesentery (A4-A5) additional diverticula (A6) two possible lymph nodes each bisected one number arbitrarily inked PATIENT NAME: ALOK GOLDMAN PATHOLOGY DATE OF : [birth year] REPORT #: [id number] PHYSICIAN: EMELY WILLIS PCP: OTHER PCP REPORT IS CONFIDENTIAL AND NOT TO BE RELEASED WITHOUT AUTHORIZATION [facility] [address] [place], [place] [address] Signed FB (under the direct supervision of a pathologist) The Gross Description was prepared using a voice recognition system. The report was reviewed for accuracy; however, sound-alike word errors, addition and/or deletions may occur. If there is any question about this report, please contact Client Services. ADDITIONAL NOTES: Immunohistochemical and/or in situ hybridization studies if performed in this case included appropriate positive controls that reacted as expected. This test was developed and its performance characteristics determined by [facility]. It has not been cleared or approved by the U.S. Food and Drug Administration. The FDA has determined that such clearance or approval is not necessary. This test is used for clinical purposes. It should not be regarded as investigational or for research. [facility] is certified under the Clinical Laboratory Improvement Amendments of 1988 (CLIA) as qualified to perform high complexity clinical laboratory testing. PERFORMING LABORATORY: Technical component was performed by [facility], [address] [place] [id number] (CLIA# [id number]). Professional interpretation was performed by [facility] [place] [facility] - [address] [place] [address] (CLIA#: [id number]). Diagnostician: Tahir Valencia MD Pathologist Electronically Signed 02/28/2025 Copies: ~ PATIENT NAME: ALOK GOLDMAN PATHOLOGY DATE OF : [birth year] REPORT #: [id number] PHYSICIAN: EMELY PATHOLOGY PCP: OTHER PCP REPORT IS CONFIDENTIAL AND NOT TO BE RELEASED WITHOUT AUTHORIZATION
--- NOTE | 2025-03-01 11:20 | DS ---
[facility] [address], [place] [address] Signed ADMISSION DATE: 02/21/2025 DISCHARGE DATE: 02/27/2025 REASON FOR ADMISSION: Perforated diverticulitis with complex intraabdominal abscess. HISTORY OF PRESENT ILLNESS: This 35-year-old large white male with a BMI of 42.7, works at the [employer], presented to emergency room with generalized abdominal pain. He had perforated diverticulitis with peridiverticular fluid collection previously under the care of Dr. Palumbo in September of 2024. Review of records confirmed he had a micro perforation without significant abscess. He did not undergo colonoscopy. He presented late the night prior to current admission, evaluated by Dr. Chacon with complaints of lower abdominal pain, which has been going on for four days. A CT scan showed findings consistent with a perforated sigmoid diverticulitis with a 7.5 x 5.5 x 2.8 cm extraluminal fluid and gas collection between the small bowel loops and the sigmoid. He is admitted for further evaluation and care. Of note, his white count at admission was 21.5, lactic acid level 1.1 (normal), but with tachycardia and relative hypotension. PERTINENT PHYSICAL EXAMINATION: GENERAL: Showed a very large white man did not look to be systemically toxic. VITAL SIGNS: Pulse was 119 after fluid resuscitation with a blood pressure of 137 systolic, temperature 99.9. HEENT: Trachea midline. He had a full marx. CHEST: Clear. HEART: Without murmur. ABDOMEN: Obese with large hanging pannus. Mild tenderness is noted in the lower abdomen. LABORATORY STUDIES: [place] [address], down to 21,000 with antibiotics, hematocrit 49.2. Chem profile normal. Creatinine 0.73. Lactic acid 1.[address] scan in detail reviewed showed amorphous inflammatory process in the central to right lower abdomen ostensively related to perforated diverticulitis. HOSPITAL COURSE: The patient was fluid resuscitated, given broad-spectrum antibiotic meropenem. He had marked improvement clinically speaking. It was deemed optimal that drainage of the abscess could be undertaken to allow for elective sigmoid resection. Unfortunately, the amorphous fluid collection was not amenable to a percutaneous approach. On that basis, on February 23, 2025, he underwent laparoscopy. This was to provide for drainage of Electronically Signed By: NILAM GUERRERO MD 03/01/25 1120 PATIENT NAME: ALOK GOLDMAN DISCHARGE SUMMARY DATE OF : 86 REPORT #: [id number] PHYSICIAN: NILAM GUERRERO MD PCP: OTHER PCP REPORT IS CONFIDENTIAL AND NOT TO BE RELEASED WITHOUT AUTHORIZATION [facility] [address], [place] [address] Signed interloop abscess fluid. Laparoscopy consisted of lysis of adhesions of omentum from the low midline incision, but the abdomen was essentially covered with thick cocoon of omentum for which actual evaluation of small bowel loops was not forthcoming. On that basis, he was converted to an open laparotomy through his low midline incision. He had drainage of multiloculated interloop mesenteric abscesses. This was related to a peridiverticular perforation quite obviously. Sigmoid colectomy was performed after drainage of the abscesses. To my surprise, the more proximal colon (distal left colon) as well as the upper to mid rectum was completely nonedematous or inflamed and on that basis, a primary anastomosis was accomplished in a side-to-end configuration (Silveira anastomosis). A hand-sewn anastomosis with interrupted 3-0 silk sutures for both layers was undertaken. A drain was placed in the interloop abscess areas. Though it was considered, a proximal diversion was not performed given the health of the two bowel segments and confidence in the anastomotic closure itself. He was maintained on broad-spectrum antibiotics postoperatively and begun on clear liquids immediately postoperatively. His drain showed only serosanguineous fluid. No evidence of purulence. He was advanced in his diet from a clear liquid to a full diet and ultimately regular diet, which he has tolerated well. His drain showed no evidence of drainage of purulence and was removed prior to discharge. His wound is healing well. Good bowel function is noted. He was transitioned to oral antibiotics Cipro and Flagyl, and will be maintained on that for few days postop. DISCHARGE MEDICATIONS: 1. Cipro 750 mg p.o. b.i.d., #10. 2. Flagyl 250 mg p.o. t.i.d., #15. 3. Tylenol 1000 mg p.o. q.6 hours, #60. 4. Ibuprofen 600 mg p.o. q.6 p.r.n. pain. DISCHARGE DIAGNOSES: 1. Complex intraabdominal abscess secondary to perforated sigmoid diverticulitis (recurrent). 2. Status post laparoscopy with conversion to open laparotomy with drainage of intraperitoneal abscess and a sigmoid resection with primary anastomosis without proximal diversion. 3. Morbid obesity. FOLLOWUP PLAN: He is return to see me in approximately four weeks. He will lift no more than 20 pounds for the next four weeks. He is recommended to shower on a daily basis. If he has any problems, he will let me know. Electronically Signed By: NILAM GUERRERO MD 03/01/25 1120 PATIENT NAME: ALOK GOLDMAN DISCHARGE SUMMARY DATE OF : 86 REPORT #: [id number] PHYSICIAN: NILAM GUERRERO MD PCP: OTHER PCP REPORT IS CONFIDENTIAL AND NOT TO BE RELEASED WITHOUT AUTHORIZATION [address] [place], [place] [address] Signed MD FIDEL Mars/AMBER /[id number] cc: Dr. Milena Palumbo Copies: ~ Electronically Signed By: NILAM GUERRERO MD 03/01/25 1120 PATIENT NAME: ALOK GOLDMAN DISCHARGE SUMMARY DATE OF : 86 REPORT #: [id number] PHYSICIAN: NILAM GUERRERO MD PCP: OTHER PCP REPORT IS CONFIDENTIAL AND NOT TO BE RELEASED WITHOUT AUTHORIZATION
== END 2025-02-27 11:15 | disposition home or self-care (01) | DRG 329 ==
LOC: ED 19:48 → MS 23:09 → ED 23:33 → MS 02-22 00:23
PROVIDERS: Family Medicine; ADMIT Surgery; ATTEND Surgery
PROC: 3E03329 Introduction of Other Anti-infective into Peripheral Vein, Percutaneous Approach (ICD-10-PCS; 2025-02-21)
PROC: 0D1M0ZP Bypass Descending Colon to Rectum, Open Approach (ICD-10-PCS; 2025-02-23)
PROC: 0DTN0ZZ Resection of Sigmoid Colon, Open Approach (ICD-10-PCS; principal; 2025-02-23 13:30)
PROC: 0DBP0ZZ Excision of Rectum, Open Approach (ICD-10-PCS; 2025-02-23 13:30)
DX: K57.20 Diverticulitis of large intestine with perforation and abscess without bleeding (principal); K65.1 Peritoneal abscess; K65.8 Other peritonitis; R65.10 Systemic inflammatory response syndrome (SIRS) of non-infectious origin without acute organ dysfunction; Z68.41 Body mass index [BMI] 40.0-44.9, adult; F17.210 Nicotine dependence, cigarettes, uncomplicated; K66.0 Peritoneal adhesions (postprocedural) (postinfection); E66.01 Morbid (severe) obesity due to excess calories; Z90.49 Acquired absence of other specified parts of digestive tract; Z98.890 Other specified postprocedural states; Z53.31 Laparoscopic surgical procedure converted to open procedure
CPT/HCPCS: 00840; 36415; 51798; 74177; 80048; 80053; 81001; 83605; 83690; 83735; 85025; 85060; 87040; 87070; 87075; 87076; 87186; 87205; 94762; A9270; J0131; J0330; J1100; J1171; J1790; J1885; J2003; J2185; J2270; J2405; J2543; J2704; J2795; J3010; J3475; J3490; J7030; J7121; Q9967